=== PATIENT | male | born 1955 | race Caucasian/White ===

== ENCOUNTER → 2018-11-14 | Day surgery (SDC) | payer BC ==
[~2018-11-14] MED LIST: BENICAR20 MG PO; FENTANYL CITRATE/PF 100MCG/2 ML INJ ONE; HYOSCYAMINE 0.125 MG TAB ONE; MIDAZOLAM HCL 2 MG/2 ML VIAL ONE; PRILOSEC2.5 MG PO; PROPOFOL IV EMULSION 10 MG/ML 50 ML VIAL ONE; TUMERIC PO
--- OUTSIDE RECORDS SUMMARY | 2018-11-14 06:49 | XMS REPORT ---
Author Author Dieter White Organization [employer] Address Unknown Phone Unavailable Care Team Providers Care Rn Residential Name Role Phone Dieter White CP Unavailable Allergies, Adverse Reactions, Alerts Substance Reaction Event Type N.K.D.A. Info Not Available Non Drug Allergy Problems Problem Type Condition Code Onset Dates Condition Status Assessment Hyperkalemia E87.5 Active Assessment Essential hypertension I10 Active Assessment Encounter to discuss test results Z71.2 Active Assessment Pure hypercholesterolemia E78.00 Active Problem Seasonal allergic rhinitis, unspecified trigger J30.2 Active Problem Pain in joints M25.50 Active Problem Pure hypercholesterolemia E78.00 Active Problem Body mass index (BMI) of 28.0-28.9 in adult Z68.28 Active Problem Essential hypertension I10 Active Problem Acute hemorrhoid K64.9 Active Medications Medication Code System Code Instructions Start Date End Date Status Dosage Advil [facility] 52893411241 200 MG Orally prn Active 1 tablet with food or milk as needed Benicar [facility] 15642689327 20 mg Orally Once a day October 01, 2018 Active 1 tablet Vitamins/Minerals [facility] 25461863755 - Orally Active as directed Vital Signs Date/Time: October 07, 2018 BMI 29.56 Index Weight 212 lbs Height 71 in Cardiac Monitoring Heart Rate 72 /min Blood Pressure Diastolic 80 mm Hg Blood Pressure Systolic 120 mm Hg Results No Known Results Summary Purpose [employer] Submission
--- OUTSIDE RECORDS SUMMARY | 2018-11-14 06:49 | XMS REPORT ---
Author Author Dieter White Organization [employer] Address Unknown Phone Unavailable Care Team Providers Care Oracle Analyst Name Role Phone Dieter White CP Unavailable Allergies, Adverse Reactions, Alerts Substance Reaction Event Type N.K.D.A. Info Not Available Non Drug Allergy Problems Problem Type Condition Code Onset Dates Condition Status Assessment Pain in joints M25.50 Active Assessment Colon cancer screening Z12.11 Active Assessment Seasonal allergic rhinitis, unspecified trigger J30.2 Active Assessment Essential hypertension I10 Active Assessment Body mass index (BMI) of 28.0-28.9 in adult Z68.28 Active Assessment Acute hemorrhoid K64.9 Active Problem Acute hemorrhoid K64.9 Active Problem Body mass index (BMI) of 28.0-28.9 in adult Z68.28 Active Problem Essential hypertension I10 Active Assessment Physical exam Z00.00 Active Problem Seasonal allergic rhinitis, unspecified trigger J30.2 Active Problem Pain in joints M25.50 Active Medications Medication Code System Code Instructions Start Date End Date Status Dosage Benicar [facility] 66339817706 20 mg Orally Once a day October 01, 2018 Active 1 tablet Advil [facility] [address]-85 200 MG Orally prn Active 1 tablet with food or milk as needed Vitamins/Minerals [facility] 17089717234 - Orally Active as directed Vital Signs Date/Time: October 01, 2018 BMI 29.70 Index Weight 213 lbs Height 71 in Cardiac Monitoring Heart Rate 78 /min Blood Pressure Diastolic 90 mm Hg Blood Pressure Systolic 158 mm Hg Results Name Result Date Reference Range Unit Abnormality Flag Chest 2 views- Xray Summary Purpose [employer] Submission
--- OUTSIDE RECORDS SUMMARY | 2018-11-14 06:49 | XMS REPORT ---
Author Author Dieter White Organization [employer] Address Unknown Phone Unavailable Care Team Providers Care Data Security Administrator Name Role Phone Dieter White CP Unavailable Allergies No Known Allergies Problems Problem Type Condition Code Onset Dates Condition Status Assessment Essential hypertension I10 Active Problem Seasonal allergic rhinitis, unspecified trigger J30.2 Active Problem Pain in joints M25.50 Active Problem Pure hypercholesterolemia E78.00 Active Problem Body mass index (BMI) of 28.0-28.9 in adult Z68.28 Active Problem Essential hypertension I10 Active Problem Acute hemorrhoid K64.9 Active Medications Medication Code System Code Instructions Start Date End Date Status Dosage Benicar [facility] [id number] 20 mg Orally Once a day October 01, 2018 Active 1 tablet Vitamins/Minerals [facility] 86796873303 - Orally Active as directed Advil [facility] 69926116551 200 MG Orally prn Active 1 tablet with food or milk as needed Results No Known Results Summary Purpose [employer] Submission
--- OUTSIDE RECORDS SUMMARY | 2018-11-14 06:49 | XMS REPORT | CCD ---
Author Author Auto Generated Organization [facility] Address Unknown Phone Unavailable Care Team Providers Care Coordinator Integrated Marketing Name Role Phone Rita Mohan RP Allergies, Adverse Reactions, Alerts Substance Reaction Status NKDA Active Problem List Condition Effective Dates Status Hemorrhoids Active Hypertension Active Medications Medication Instructions Start Date End Date Status Sodium Chloride 0.9% 1,000 mL, Rate: 25 ml/hr, Infuse 06/10/2012 06/10/2012 Discontinued IV 1000 mL over: 40 hr, Route: IV, Dosing Weight 95.455 kg, Total Volume: 1,000, Start date: 06/10/12 9:59:00, Duration: 30 day, Stop date: 07/10/12 9:58:00 Vital Signs Most recent to oldest [Reference Range]: 1 2 3 Height 185.42 cm (06/10/2012 09:59:00) Systolic Blood Pressure [90-140 mmHg] 130 mmHg (06/10/2012 11:45:00) 124 mmHg (06/10/2012 11:30:00) 113 mmHg (06/10/2012 11:20:00) Diastolic Blood Pressure [60-90 mmHg] 64 mmHg (06/10/2012 11:45:00) 60 mmHg (06/10/2012 11:30:00) 59 mmHg *LOW* (06/10/2012 11:20:00) Respiratory Rate [14-20 BRMIN] 18 BRMIN (06/10/2012 11:45:00) 16 BRMIN (06/10/2012 11:30:00) 15 BRMIN (06/10/2012 11:20:00) Weight 97.727 kg (06/10/2012 09:59:00)
--- OUTSIDE RECORDS SUMMARY | 2018-11-14 06:49 | XMS REPORT | Summary of Care ---
Author Author [facility] Organization [facility] Address Unknown Phone Unavailable Encounter [facility](FIN) [id number] Date(s): 01/25/15 - 01/25/15 [facility] [address] [place] [address]- Discharge Disposition: Home Attending Physician: Rita Mohan MD Referring Physician: Rita Mohan MD Vital Signs No data available for this section Problem List Condition Effective Dates Status Health Status Informant Benign hypertension1 07/17/10 Active Bleeding internal 06/05/12 Active hemorrhoids2 Contact dermatitis 06/11/12 Resolved due to poison ivy3 Disorder of oral 06/12/10 Active soft tissues4 Fatigue5 05/20/12 Active Gastroenteritis6 03/15/09 Resolved Hematochezia7 06/05/12 Resolved Hyperlipidemia8 05/20/12 Active Left lower quadrant 06/05/12 Active pain9 Pain in thumb10 05/17/14 Resolved Shoulder joint 09/03/12 Resolved pain11 [id number] 09/08/12 Active 1Data migrated from [employer] on 09/07/14. 2Data migrated from [employer] on 09/07/14. 3Data migrated from [employer] on 10/22/14. 4Data migrated from [employer] on 09/07/14. 5Data migrated from [employer] on 09/07/14. 6Data migrated from [employer] on 10/22/14. 7Data migrated from [employer] on 09/07/14. 8Data migrated from [employer] on 09/07/14. 9Data migrated from [employer] on 09/07/14. 10Data migrated from [employer] on 10/13/14. 11Data migrated from [employer] on 09/07/14. 12Data migrated from [employer] on 09/07/14. Allergies, Adverse Reactions, Alerts Substance Reaction Severity Status NKDA Active Medications No data available for this section Results CHEM PANEL Most recent to 1 oldest [Reference Range]: eGFR 74 mL/min/1.73m2 1 *NA* (01/25/15 11:06 AM) POC Creatinine 1.1 mg/dL [0.5-1.4 mg/dL] (01/25/15 11:06 AM) 1Result Comment: The eGFR is calculated using the CKD-EPI formula. In most young, healthy individuals the eGFR will be >90 mL/min/1.73m2. The eGFR declines with age. An eGFR of 60-89 may be normal in some populations, particularly the elderly, for whom the CKD-EPI formula has not been extensively validated. Use of the eGFR is not recommended in the following populations: Individuals with unstable creatinine concentrations, including patients and those with serious co-morbid conditions. Patients with extremes in muscle mass or diet. The data above are obtained from the National Kidney Disease Education Program ( NKDEP) which additionally recommends that when the eGFR is used in patients with extremes of body mass index for purposes of drug dosing, the eGFR should be mul tiplied by the estimated BMI. Immunizations No data available for this section Procedures Procedure Date Related Diagnosis Body Site Operation1 06/25/12 Colonoscopy Open reduction and fixation of fracture Repair of rotator cuff of shoulder 1Transanal hemorrhoidal dearterialization Social History Social History Type Response Alcohol Current1 Smoking Status Former smoker; Stopped at age: 4; Exposure to Tobacco Smoke None; Other Tobacco Frequency chewing tobacco; Cigarette Smoking Last 365 Days No; Reg Smoking Cessation Counseling No 1social drinking Assessment and Plan No data available for this section
--- OUTSIDE RECORDS SUMMARY | 2018-11-14 06:49 | XMS REPORT | Continuity of Care Document ---
Author Author [employer] Address Unknown Phone Unavailable Care Team Providers Care [employer] Faculty Member Name Role Phone [employer] Information Link[employer] Unavailable Unavailable Problems Problem Status Onset Date Classification Date Reported Comments Source LLQ ABD PAIN; DIVERTICULITIS Active 01/21/2015 [facility] Pain in thumb10 Resolved 05/17/2014 Problem 06/26/2018 Data migrated from [employer] on 10/13/14. [facility] [id number] Active 09/08/2012 Problem 06/26/2018 Data migrated from [employer] on 09/07/14. [facility] Shoulder joint pain11 Resolved 09/03/2012 Problem 06/26/2018 Data migrated from [employer] on 09/07/14. [facility] Contact dermatitis due to poison ivy3 Resolved 06/11/2012 Problem 06/26/2018 Data migrated from [employer] on 10/22/14. [facility] Bleeding internal hemorrhoids2 Active 06/05/2012 Problem 06/26/2018 Data migrated from [employer] on 09/07/14. [facility] Hematochezia7 Resolved 06/05/2012 Problem 06/26/2018 Data migrated from [employer] on 09/07/14. [facility] Left lower quadrant pain9 Active 06/05/2012 Problem 06/26/2018 Data migrated from [employer] on 09/07/14. [facility] UNK Active 06/05/2012 [facility] V76.51/V16.0/V18.5 Active 06/05/2012 [facility] ICD 569.3 455.2/CPT 38847 [id number] Active 06/05/2012 [facility] Fatigue5 Active 05/20/2012 Problem 06/26/2018 Data migrated from [employer] on 09/07/14. [facility] Hyperlipidemia8 Active 05/20/2012 Problem 06/26/2018 Data migrated from [employer] on 09/07/14. [facility]1 Active 07/17/2010 Problem 06/26/2018 Data migrated from [employer] on 09/07/14. [facility] Disorder of oral soft tissues4 Active 06/12/2010 Problem 06/26/2018 Data migrated from [employer] on 09/07/14. [facility] Gastroenteritis6 Resolved 03/15/2009 Problem 06/26/2018 Data migrated from [employer] on 10/22/14. [facility] Hemorrhoids Active Problem 06/27/2012 [facility] Hypertension Active Problem 06/27/2012 [facility] Essential hypertension Active Diagnosis 10/17/2018 [facility] Seasonal allergic rhinitis, unspecified trigger Active Problem 10/17/2018 [facility] Pain in joints Active Problem 10/17/2018 [facility] Pure hypercholesterolemia Active Diagnosis 10/17/2018 [facility] Body mass index of 28.0-28.9 in adult Active Problem 10/17/2018 [facility] Acute hemorrhoid Active Problem 10/17/2018 [facility] Hyperkalemia Active Diagnosis 10/17/2018 [facility] Encounter to discuss test results Active Diagnosis 10/17/2018 [facility] Physical exam Active Diagnosis 10/03/2018 [facility] Medications Medication Details Route Status Patient Instructions Ordering Provider Order Date Source Benicar 1 tablet Orally Active 20 mg Orally Once a day Ghebranious 10/01/2018 [facility] cefdinir 300 MG Oral Capsule 300 mg=1 cap, PO, BID, X 10 day, # 20 cap, 0 Refill(s), Pharmacy: [facility] [id number] Active 06/23/2018 [facility] montelukast 10 MG Oral Tablet [Singulair] 10 mg=1 tab, PO, Bedtime, # 30 tab, 0 Refill(s), Pharmacy: [facility] [id number] Active 06/23/2018 [facility] Fluticasone propionate 0.05 MG/ACTUAT Metered Dose Nasal [place] [Flonase] 2 spray, NASAL, BID, # 16 gm, 0 Refill(s), Pharmacy: [facility] [id number] Active 06/23/2018 [facility] cetirizine hydrochloride 10 MG Oral Tablet [Zyrtec] 10 mg=1 tab, PO, Daily, PRN for allergy symptoms, # 30 tab, 1 Refill(s) Active 06/23/2018 [facility] Lactated Ringers Injection IV 1000 mL 1,000 mL, Rate: 50 ml/hr, Infuse over: 20 hr, Route: IV, Dosing Weight 97.727 kg, Total Volume: 1,000, Start date: 06/25/12 12:09:00, Duration: 30 day, Stop date: 07/25/12 12:08:00 IV No Longer Active Leon 06/25/2012 [facility] acetaminophen-hydrocodone 325 mg-5 mg oral tablet 2 tab, Route: PO, Dosing Weight 97.727, kg, Q4H, PRN Pain Score 4-6, Start date: 06/25/12 12:09:00, Duration: 30 day, Stop date: 07/25/12 12:08:00 PO No Longer Active Catia 06/25/2012 [facility] fentanyl 25 microgram, Route: IVP, Q5Min, Dosing Weight 97.727, kg, PRN Pain Score 4-6, Start date: 06/25/12 12:09:00, Duration: 4 doses or times, Stop date: Limited # of times IVP No Longer Active Catia 06/25/2012 [facility] hydromorphone 0.5 mg, Route: IVP, Q5Min, Dosing Weight 97.727, kg, PRN Pain Score 4-6, Start date: 06/25/12 12:09:00, Duration: 5 doses or times, Stop date: Limited # of times IVP No Longer Active Catia 06/25/2012 [facility] ondansetron 4 mg, Route: IVP, ONCE, Dosing Weight 97.727, kg, PRN Nausea & Vomiting, Start date: 06/25/12 12:09:00 IVP No Longer Active Catia 06/25/2012 [facility] naloxone 0.04 mg, Route: IVP, Q2MIN, Dosing Weight 97.727, kg, PRN Narcotic Reversal, Start date: 06/25/12 12:09:00, Duration: 8 doses or times, Stop date: Limited # of times IVP No Longer Active Leon 06/25/2012 [facility] flumazenil 0.2 mg, Route: IVP, PRN, Dosing Weight 97.727, kg, PRN Benzodiazepine Reversal, Initial dose, Start date: 06/25/12 12:09:00, Duration: 30 day, Stop date: 07/25/12 12:08:00 IVP No Longer Active Leon 06/25/2012 [facility] Lactated Ringers Injection IV 1000 mL 1,000 mL, Rate: 25 ml/hr, Infuse over: 40 hr, Route: IV, Dosing Weight 97.727 kg, Total Volume: 1,000, Start date: 06/25/12 10:35:00, Duration: 30 day, Stop date: 07/25/12 10:34:00 IV No Longer Active Leon 06/25/2012 [facility] [place] 5/325 oral tablet 1 tab, PO, Q4-6H, PRN, 30 tab, as needed for pain, Substitution Allowed, Maintenance [facility] Toradol 10 mg oral tablet 10 mg, PO, Q6H, PRN, 20 btl, Pain, Substitution Allowed, TAB PO Active [facility] 06/25/2012 [facility] morphine Sulfate 4 mg, Route: IVP, Q2H, Dosing Weight 97.727, kg, PRN Pain Score 4-6, Start date: 06/25/12 9:57:00, Duration: 30 day, Stop date: 07/25/12 9:56:00 IVP No Longer Active Leon 06/25/2012 [facility] acetaminophen-hydrocodone 325 mg-5 mg oral tablet 2 tab, Route: PO, Dosing Weight 97.727, kg, Q4H, PRN Pain Score 4-6, Start date: 06/25/12 9:57:00, Duration: 30 day, Stop date: 07/25/12 9:56:00 PO No Longer Active Leon 06/25/2012 [facility] Sodium Chloride 0.9% IV 1000 mL 1,000 mL, Rate: 25 ml/hr, Infuse over: 40 hr, Route: IV, Dosing Weight 95.455 kg, Total Volume: 1,000, Start date: 06/10/12 9:59:00, Duration: 30 day, Stop date: 04/04/13 9:58:00 IV No Longer Active Voloyiannis 06/10/2012 [facility] omega-3 polyunsaturated fatty acids 1000 mg oral capsule 1,000 mg, 1 cap, PO, Daily, Substitution Allowed PO Active 06/09/2012 [facility] Vitamin D3 1000 intl units oral capsule 1,000 IntlUnit, 1 cap, PO, Daily, 100 cap, Substitution Allowed, CAP PO Active 06/09/2012 [facility] multivitamin with minerals Multiple Vitamins with Zinc oral capsule 1 cap, PO, Daily, 60 cap, Substitution Allowed, Maintenance, CAP PO Active 06/09/2012 [facility] Benicar 20 mg oral tablet 20 mg, 1 tab, PO, Daily, 30 tab, Substitution Allowed, TAB PO Active 06/09/2012 [facility] Vitamins/Minerals as directed Orally Active - Orally Ghebranious [facility] Advil 1 tablet with food or milk as needed Orally Active 200 MG Orally prn Ghebranious [facility] Advil 1 tablet with food or milk as needed Orally Active 200 MG Orally prn Ghebranious [facility] Allergies, Adverse Reactions, Alerts Substance Category Reaction Severity Reaction type Status Date Reported Comments Source N.K.D.A. Adverse Reaction Info Not Available Adverse Reaction Active 10/07/2018 [facility] Immunizations Immunization Date Given Site Status Last Updated Comments Source influenza virus vaccine, inactivated 01/02/2016 Right Deltoid completed [facility] Results Order Name Results Value Reference Range Date Interpretation Comments Source CHEM PANEL eGFR 74 01/25/2015 Result Comment: The eGFR is calculated using the [...] from the National Kidney Disease Education Program (NKDEP) which additionally recommends that when the eGFR is used in patients with extremes of body mass index for purposes of drug dosing, the eGFR should be multiplied by the estimated BMI. [facility] CHEM PANEL POC Creatinine 1.1 0.5 - 1.4 01/25/2015 [facility] CHEMISTRY eGFR 84 06/09/2012 NA <sup>1</sup>Result Comment: The eGFR is calculated using the CKD-EPI formula. In most young, healthy individuals the eGFR will be >90 mL/min/1.73m2. The eGFR declines with age. An eGFR of 60-89 may be normal in some populations, particularly the elderly, for whom the CKD-EPI formula has not been extensively validated. Use of the eGFR is not recommended in the following populations:& lt;br/>
Individuals with unstable creatinine concentrations, including patients and those with serious co-morbid conditions.

Patients with extremes in muscle mass or diet.

The data above are obtained from the National Kidney Disease Education Program (NKDEP) which additionally recommends that when the eGFR is used in patients with extremes of body mass index for purposes of drug dosing, the eGFR should be multiplied by the estimated BMI. [facility] CHEMISTRY CO2 30 24 - 32 06/09/2012 Normal [facility] CHEMISTRY Calcium Lvl 9.2 8.5 - 10.5 06/09/2012 Normal [facility] CHEMISTRY Glucose Lvl 109 70 - 99 06/09/2012 [facility] <sup>2</sup>Interpretive Data: Adult reference range values reflect the clinical guidelines
of the [place] [employer]. [facility] CHEMISTRY BUN 16 7 - 22 06/09/2012 Normal [facility] CHEMISTRY Chloride Lvl 105 95 - 109 06/09/2012 Normal [facility] CHEMISTRY Sodium Lvl 142 135 - 145 06/09/2012 Normal [facility] CHEMISTRY Potassium Lvl 4.3 3.5 - 5.1 06/09/2012 Normal [facility] CHEMISTRY Creatinine Lvl 1.0 0.5 - 1.4 06/09/2012 Normal [facility] CHEMISTRY AGAP 11.3 10.0 - 20.0 06/09/2012 Normal [facility] HEMATOLOGY Hct 41.4 42.0 - 54.0 06/09/2012 LOW [facility] HEMATOLOGY Hgb 12.9 14.0 - 18.0 06/09/2012 LOW [facility] Pathology Reports No Data Provided for This Section Diagnostic Reports Report Value Date Source Ankle 3 views DX Clinical Indication: Status post fall with left ankle injury. Comparison: None FINDINGS: The AP, oblique, and lateral views of the left ankle show a spiral fracture injury at the distal left fibula extending from the level of the ankle mortise slightly superiorly. Minimal displacement of the fracture fragments present. The talar dome appears intact. There is mild to moderate soft tissue swelling over the lateral malleolus. No large ankle effusion. No radiopaque foreign body. If there is further concern, recommend follow-up radiographs or MRI for complete assessment. IMPRESSION: 1. Minimally displaced spiral fracture injury at the distal left fibula extending from the level of the ankle mortise slightly superiorly. There is mild to moderate overlying soft tissue swelling. SL: [id number] 05/12/2016 [facility] Abdomen/Pelvis w IV contrast CT EXAMINATION: CT of the abdomen and pelvis with contrast HISTORY: R10.32 Left lower quadrant pain; K57.80 Diverticulitis of intestine, part unspecified, with perforation and abscess without bleeding COMPARISON: None. DLP: 1645.16 TECHNIQUE: Multiple transaxial images through the abdomen and pelvis were acquired following administration of intravenous contrast material. Oral contrast was administered. Multiplanar reformatted images were performed. FINDINGS: The lung bases are clear bilaterally. Mild hepatomegaly is noted. 1.3 cm hypodense cyst in the right hepatic lobe is seen. No intrahepatic or extra hepatic biliary duct dilatation is seen. Gallbladder, pancreas, adrenal glands, and kidneys are unremarkable. Bladder and prostate are unremarkable. Small fat-containing left inguinal hernia is seen. Sigmoid diverticula are seen without inflammatory change to suggest acute diverticulitis. Appendix is unremarkable. No intraperitoneal free air, free fluid, or pathologic adenopathy is seen. Mild arterial desiccation is are seen. Superficial soft tissues are unremarkable. Degenerative change of the lower lumbar spine is seen. Bilateral L5 pars interarticularis defects are seen with grade 1/2 anterolisthesis of L5 over S1. IMPRESSION: 1. No acute intra-abdominal/pelvic abnormality. 2. Sigmoid diverticulosis without acute diverticulitis. 3. Mild hepatomegaly. 4. Small fat-containing left inguinal hernia. SL: 16 01/25/2015 [facility] Consultation Notes No Data Provided for This Section Discharge Summaries No Data Provided for This Section History and Physicals No Data Provided for This Section Vital Signs Vital Sign Value Date Comments Source Weight 212 10/07/2018 [facility] Height 71 10/07/2018 [facility] Heart Rate 72 10/07/2018 [facility] Diastolic (mm Hg) 80 10/07/2018 [facility] Systolic (mm Hg) 120 10/07/2018 [facility] Weight 213 10/01/2018 [facility] Height 71 10/01/2018 [facility] Heart Rate 78 10/01/2018 [facility] Diastolic (mm Hg) 90 10/01/2018 [facility] Systolic (mm Hg) 158 10/01/2018 [facility] BMI Calculated 27.95 06/23/2018 [facility] Weight 96.08 06/23/2018 [facility] Height 185.42 cm 06/23/2018 [facility] Systolic (mm Hg) 176 06/23/2018 [facility] Diastolic (mm Hg) 90 06/23/2018 [facility] Respitory Rate 18 06/23/2018 [facility] Heart Rate 76 06/23/2018 [facility] Temperature Oral (F) 96.8 F 06/23/2018 [facility] Diastolic (mm Hg) 70 06/25/2012 [facility] Systolic (mm Hg) 107 06/25/2012 [facility] Systolic (mm Hg) 113 06/25/2012 [facility] Diastolic (mm Hg) 80 06/25/2012 [facility] Diastolic (mm Hg) 84 06/25/2012 [facility] Systolic (mm Hg) 110 06/25/2012 [facility] Respitory Rate 12 06/25/2012 [facility] Respitory Rate 11 06/25/2012 [facility] Respitory Rate 15 06/25/2012 [facility] Heart Rate 63 06/25/2012 [facility] Rate 18 06/10/2012 [facility] Diastolic (mm Hg) 64 06/10/2012 [facility] Systolic (mm Hg) 130 06/10/2012 [facility] Rate 16 06/10/2012 [facility] Systolic (mm Hg) 124 06/10/2012 [facility] Diastolic (mm Hg) 60 06/10/2012 [facility] Rate 15 06/10/2012 [facility] Systolic (mm Hg) 113 06/10/2012 [facility] Diastolic (mm Hg) 59 06/10/2012 [facility] Weight 97.727 06/10/2012 [facility] Height 185.42 cm 06/10/2012 [facility] Temperature Oral (F) 98.5 F 06/09/2012 [facility] Heart Rate 68 06/09/2012 [facility] Height 185.42 cm 06/09/2012 [facility] Weight 95.455 06/09/2012 [facility] Encounters Location Location Details Encounter Type Encounter Number Reason For Visit Attending Provider ADM Date DC Date Status Source [facility] FREDDY [id number] THEODOROS VOLOYIANNIS 06/10/2012 06/10/2012 Discharged [facility] DS [id number] ICD 569.3 455.2/CPT 14036 [id number] THEODOROS VOLOYIANNIS 06/25/2012 06/25/2012 Active [facility] Outpatient [id number] FIRAS QUDDOS 12/23/2014 [facility] Outpatient [id number] [facility] 01/20/2015 [facility] Outpatient [id number] Theodoros Voloyiannis 01/25/2015 01/26/2015 [facility] Outpatient [id number] [place] [facility] 02/02/2015 Active [facility] Outpatient [id number] FIRAS QUDDOS 11/29/2015 Active [facility] Outpatient [id number] FIRAS QUDDOS 01/02/2016 [facility] Outpatient [id number] HENRY RODRIGUZE 05/12/2016 [facility] Outpatient [id number] HENRY RODRIGUEZ 09/09/2016 [facility] Outpatient [id number] FIRAS QUDDOS 09/10/2016 Active [facility] Outpatient [id number] EDDIE HOLDER 06/23/2018 [facility] Outpatient [id number] Eddie Holder 06/23/2018 06/24/2018 [facility] Procedures Procedure Code Date Perfomer Comments Source Operation<sup>1</sup> [id number] 06/25/2012 Transanal hemorrhoidal dearterialization [facility] Operation<sup>1</sup> [id number] 06/25/2012 Transanal hemorrhoidal dearterialization [facility] Colonoscopy [id number] [facility] Open reduction and fixation of fracture [id number] [facility] Repair of rotator cuff of shoulder [id number] [facility] Colonoscopy [id number] [facility] Open reduction and fixation of fracture [id number] [facility] Repair of rotator cuff of shoulder [id number] [facility] Colonoscopy [id number] [facility] Open reduction and fixation of fracture [id number] [facility] Repair of rotator cuff of shoulder [id number] [facility] Assessment and Plan No Data Provided for This Section Plan of Care No Data Provided for This Section Social History Social History Date Source Social History TypeResponse Alcohol Current1 Smoking Status Former smoker; Type: Chewing tobacco; Exposure to Tobacco Smoke None; Cigarette Smoking Last 365 Days No; Reg Smoking Cessation Counseling No; Stopped at age: 58; Other Tobacco Frequency chewing tobacco; entered on: 06/23/18 1social drinking 09/09/2016 [facility] Social History TypeResponse Alcohol Current1 Smoking Status Former smoker; Stopped at age: 4; Exposure to Tobacco Smoke None; Other Tobacco Frequency chewing tobacco; Cigarette Smoking Last 365 Days No; Reg Smoking Cessation Counseling No 1social drinking 01/20/2015 [facility] Family History No Data Provided for This Section Advance Directives No Data Provided for This Section Functional Status No Data Provided for This Section
--- OUTSIDE RECORDS SUMMARY | 2018-11-14 06:49 | XMS REPORT | CCD ---
Author Author Auto Generated Organization [facility] Address Unknown Phone Unavailable Care Team Providers Care Gas And Oil Checker Name Role Phone Rita Mohan RP Allergies, Adverse Reactions, Alerts Substance Reaction Status NKDA Active Problem List Condition Effective Dates Status Hemorrhoids Active Hypertension Active Medications Medication Instructions Start Date End Date Status omega-3 1,000 mg, 1 cap, PO, Daily, 06/09/2012 Ordered polyunsaturated Substitution Allowed fatty acids 1000 mg oral capsule [place] 5/325 oral 1 tab, PO, Q4-6H, PRN, 30 tab, as 06/25/2012 Ordered tablet needed for pain, Substitution Allowed, Maintenance Toradol 10 mg oral 10 mg, PO, Q6H, PRN, 20 btl, Pain, 06/25/2012 Ordered tablet Substitution Allowed, TAB Vitamin D3 1000 intl 1,000 IntlUnit, 1 cap, PO, Daily, 06/09/2012 Ordered units oral capsule 100 cap, Substitution Allowed, CAP multivitamin with 1 cap, PO, Daily, 60 cap, 06/09/2012 Ordered minerals Multiple Substitution Allowed, Maintenance, Vitamins with Zinc CAP oral capsule Benicar 20 mg oral 20 mg, 1 tab, PO, Daily, 30 tab, 06/09/2012 Ordered tablet Substitution Allowed, TAB morphine Sulfate 4 mg, Route: IVP, Q2H, Dosing 06/25/2012 06/25/2012 Discontinued Weight 97.727, kg, PRN Pain Score 4-6, Start date: 06/25/12 9:57:00, Duration: 30 day, Stop date: 07/25/12 9:56:00 acetaminophen-hydroc 2 tab, Route: PO, Dosing Weight 06/25/2012 06/25/2012 Discontinued odone 325 mg-5 mg 97.727, kg, Q4H, PRN Pain Score oral tablet 4-6, Start date: 06/25/12 9:57:00, Duration: 30 day, Stop date: 07/25/12 9:56:00 acetaminophen-hydroc 1 tab, Route: PO, Dosing Weight 06/25/2012 06/25/2012 Discontinued odone 325 mg-5 mg 97.727, kg, Q4H, PRN Pain Score oral tablet 1-3, Start date: 06/25/12 9:57:00, Duration: 30 day, Stop date: 07/25/12 9:56:00 Lactated Ringers 1,000 mL, Rate: 50 ml/hr, Infuse 06/25/2012 06/25/2012 Discontinued Injection IV 1000 mL over: 20 hr, Route: IV, Dosing Weight 97.727 kg, Total Volume: 1,000, Start date: 06/25/12 12:09:00, Duration: 30 day, Stop date: 07/25/12 12:08:00 acetaminophen-hydroc 2 tab, Route: PO, Dosing Weight 06/25/2012 06/25/2012 Discontinued odone 325 mg-5 mg 97.727, kg, Q4H, PRN Pain Score oral tablet 4-6, Start date: 06/25/12 12:09:00, Duration: 30 day, Stop date: 07/25/12 12:08:00 acetaminophen-hydroc 1 tab, Route: PO, Dosing Weight 06/25/2012 06/25/2012 Discontinued odone 325 mg-5 mg 97.727, kg, Q4H, PRN Pain Score oral tablet 1-3, Start date: 06/25/12 12:09:00, Duration: 30 day, Stop date: 07/25/12 12:08:00 fentanyl 25 microgram, Route: IVP, Q5Min, 06/25/2012 06/25/2012 Completed Dosing Weight 97.727, kg, PRN Pain Score 4-6, Start date: 06/25/12 12:09:00, Duration: 4 doses or times, Stop date: Limited # of times hydromorphone 0.5 mg, Route: IVP, Q5Min, Dosing 06/25/2012 06/25/2012 Discontinued Weight 97.727, kg, PRN Pain Score 4-6, Start date: 06/25/12 12:09:00, Duration: 5 doses or times, Stop date: Limited # of times ondansetron 4 mg, Route: IVP, ONCE, Dosing 06/25/2012 06/25/2012 Discontinued Weight 97.727, kg, PRN Nausea & Vomiting, Start date: 06/25/12 12:09:00 naloxone 0.04 mg, Route: IVP, Q2MIN, Dosing 06/25/2012 06/25/2012 Discontinued Weight 97.727, kg, PRN Narcotic Reversal, Start date: 06/25/12 12:09:00, Duration: 8 doses or times, Stop date: Limited # of times flumazenil 0.2 mg, Route: IVP, PRN, Dosing 06/25/2012 06/25/2012 Discontinued Weight 97.727, kg, PRN Benzodiazepine Reversal, Initial dose, Start date: 06/25/12 12:09:00, Duration: 30 day, Stop date: 07/25/12 12:08:00 Lactated Ringers 1,000 mL, Rate: 25 ml/hr, Infuse 06/25/2012 06/25/2012 Discontinued Injection IV 1000 mL over: 40 hr, Route: IV, Dosing Weight 97.727 kg, Total Volume: 1,000, Start date: 06/25/12 10:35:00, Duration: 30 day, Stop date: 07/25/12 10:34:00 Vital Signs Most recent to oldest [Reference Range]: 1 2 3 Height 185.42 cm (06/09/2012 07:27:00) Temperature Oral [96.4-99.1 DegF] 98.5 DegF (06/09/2012 08:13:00) Systolic Blood Pressure [90-140 mmHg] 107 mmHg (06/25/2012 14:00:00) 113 mmHg (06/25/2012 13:45:00) 110 mmHg (06/25/2012 13:28:00) Diastolic Blood Pressure [60-90 mmHg] 70 mmHg (06/25/2012 14:00:00) 80 mmHg (06/25/2012 13:45:00) 84 mmHg (06/25/2012 13:28:00) Respiratory Rate [14-20 BRMIN] 12 BRMIN *LOW* (06/25/2012 12:45:00) 11 BRMIN *LOW* (06/25/2012 12:30:00) 15 BRMIN (06/25/2012 12:15:00) Peripheral Pulse Rate [60-100 bpm] 63 bpm (06/25/2012 10:24:00) 68 bpm (06/09/2012 08:13:00) Weight 95.455 kg (06/09/2012 07:27:00) Results CHEMISTRY Most recent to oldest [Reference Range]: 1 Sodium Lvl [135-145 mEq/L] 142 mEq/L (06/09/2012 08:05:00) Potassium Lvl [3.5-5.1 mEq/L] 4.3 mEq/L (06/09/2012 08:05:00) Chloride Lvl [95-109 mEq/L] 105 mEq/L (06/09/2012 08:05:00) CO2 [24-32 mEq/L] 30 mEq/L (06/09/2012 08:05:00) AGAP [10.0-20.0 mEq/L] 11.3 mEq/L (06/09/2012 08:05:00) Creatinine Lvl [0.5-1.4 mg/dL] 1.0 mg/dL (06/09/2012 08:05:00) eGFR 84 mL/min/1.73m2 1 *NA* (06/09/2012 08:05:00) BUN [7-22 mg/dL] 16 mg/dL (06/09/2012 08:05:00) Glucose Lvl [70-99 mg/dL] 109 mg/dL 2 *HI* (06/09/2012 08:05:00) Calcium Lvl [8.5-10.5 mg/dL] 9.2 mg/dL (06/09/2012 08:05:00) 1Result Comment: The eGFR is calculated using [...] be mul tiplied by the estimated BMI. 2Interpretive Data: Adult reference range values reflect the clinical guidelines of the [place] [employer]. HEMATOLOGY Most recent to oldest [Reference Range]: 1 Hgb [14.0-18.0 g/dL] 12.9 g/dL *LOW* (06/09/2012 08:05:00) Hct [42.0-54.0 %] 41.4 % *LOW* (06/09/2012 08:05:00) Procedures Procedures Date Related Diagnosis Colonoscopy Open reduction and fixation of fracture Repair of rotator cuff of shoulder
--- OUTSIDE RECORDS SUMMARY | 2018-11-14 06:49 | XMS REPORT | Summary of Care ---
Author Author [facility] Organization [facility] Address Unknown Phone Unavailable Encounter [facility] Selin(FIN) [id number] Date(s): 06/23/18 - 06/23/18 [facility] [address] [place] [address]- [phone] Discharge Disposition: Home or Self Care Attending Physician: Ame Holder MD Vital Signs Most recent to 1 oldest [Reference Range]: Height 185.42 cm (06/23/18 2:22 PM) Temperature Oral 96.8 DegF [96.4-99.1 DegF] (06/23/18 2:22 PM) Blood Pressure 176/90 mmHg [90-140/60-90 mmHg] *HI* (06/23/18 2:22 PM) Respiratory Rate 18 BRMIN [14-20 BRMIN] (06/23/18 2:22 PM) Peripheral Pulse 76 bpm Rate [60-100 bpm] (06/23/18 2:22 PM) Weight 96.08 kg (06/23/18 2:22 PM) Body Mass Index 27.95 m2 (06/23/18 2:22 PM) Problem List Condition Effective Dates Status Health Status Informant Benign hypertension1 07/17/10 Active Bleeding internal 06/05/12 Active hemorrhoids2 Contact dermatitis 06/11/12 Resolved due to poison ivy3 Disorder of oral 06/12/10 Active soft tissues4 Fatigue5 05/20/12 Active Gastroenteritis6 03/15/09 Resolved Hematochezia7 06/05/12 Resolved Hyperlipidemia8 05/20/12 Active Left lower quadrant 06/05/12 Active pain9 Pain in thumb10 05/17/14 Resolved Shoulder joint 09/03/12 Resolved pain11 [id number] 09/08/12 Active 1Data migrated from [employer] on 6/2/15. 2Data migrated from [employer] on 09/07/14. [...] Substance Reaction Severity Status NKDA Active Medications cefdinir 300 mg oral capsule 300 mg=1 cap, PO, BID, X 10 day, # 20 cap, 0 Refill(s), Pharmacy: [id number] Start Date: 06/23/18 Stop Date: 07/03/18 Status: Ordered Flonase 0.05 mg/inh nasal spray 2 spray, NASAL, BID, # 16 gm, 0 Refill(s), Pharmacy: [id number] Start Date: 06/23/18 Status: Ordered Singulair 10 mg oral tablet 10 mg=1 tab, PO, Bedtime, # 30 tab, 0 Refill(s), Pharmacy: [id number] Start Date: 06/23/18 Status: Ordered ZyrTEC 10 mg oral tablet 10 mg=1 tab, PO, Daily, PRN for allergy symptoms, # 30 tab, 1 Refill(s) Start Date: 06/23/18 Stop Date: 07/23/18 Status: Ordered Results No data available for this section Immunizations Given and Recorded Vaccine Date Status Refusal Reason influenza virus vaccine, inactivated 01/02/16 Given Procedures Procedure Date Related Diagnosis Body Site Status Operation1 06/25/12 Completed Colonoscopy Completed Open reduction and fixation of fracture Completed Repair of rotator cuff of shoulder Completed 1Transanal hemorrhoidal dearterialization Social History Social History Type Response Alcohol Current1 Smoking Status Former smoker; Type: Chewing tobacco; Exposure to Tobacco Smoke None; Cigarette Smoking Last 365 Days No; Reg Smoking Cessation Counseling No; Stopped at age: 58; Other Tobacco Frequency chewing tobacco; entered on: 06/23/18 1social drinking Assessment and Plan No data available for this section
--- NOTE | 2018-11-14 07:45 | NUR ---
SPIRITUAL CARE - Pre-Surgery Assessment: Pt in bed. Pt reported supportive attention from family and friends. Intervention: I provided pastoral presence, hospitality, and sympathetic listening. I acquainted pt with availability of mechanical systems control engineer while hospitalized. Outcome: Pt expressed appreciation for visit. No need for follow up indicated at this time. NAL[facility] Spiritual Care Department O: [phone] Pager: [phone] ([phone] number calling from)
[2018-11-14 11:00] VITALS: BP 118/73
--- NOTE | 2018-11-14 15:17 | Operative Report ---
DATE OF PROCEDURE: 11/14/2018 SURGEON: Robi Freedman MD PROCEDURE: EGD with biopsies and colonoscopy with polypectomy. INDICATIONS FOR EGD: Heartburn, indigestion, bloating. INDICATIONS FOR COLONOSCOPY: Colorectal cancer screening. MEDICATIONS: The patient was done under MAC, please see anesthesiologist's note. PROCEDURE IN DETAIL: With the patient in left lateral decubitus position, flexible fiberoptic Olympus gastroscope was introduced into the esophagus under direct visualization without any difficulty. There was some patchy erythema noted in distal esophagus. The GE junction appears somewhat nodular and that was biopsied. The scope was then advanced with ease into the stomach. Mucosa overlying the antrum and the body revealed some patchy erythema and low-grade to moderate edema. Biopsies were obtained and sent to stain for H pylori. Hyperplastic-appearing polyps were noted in the body of the stomach and somewhat partially excised with the cold biopsy forceps. The pylorus was of normal contour and shape, it was intubated with ease and the scope was advanced all the way to the second portion of the duodenum. The scope was then withdrawn slowly and biopsies were obtained from the second portion and the duodenal bulb to rule out sprue. The scope was then withdrawn back into the stomach and retroflexed, mucosa overlying the fundus and cardia appeared to be within normal limits. The scope was then straightened out, it was subsequently withdrawn. The patient tolerated the procedure well. IMPRESSION: 1. Distal esophagitis, mild. 2. GE junction somewhat nodular, biopsied. 3. Gastric polyps, hyperplastic appearing, some partially were excised with cold biopsy forceps. 4. Gastritis, biopsied. Biopsies sent to stain for Helicobacter pylori. 5. Rule out sprue. PLAN: Follow up histology. Initiate Protonix 40 mg one p.o. q.a.m. a.c. PROCEDURE IN DETAIL: The patient was then turned around after adequate lubrication of the anal canal, flexible fiberoptic Olympus colonoscope was inserted into the rectum with ease and advanced all the way to the cecum. Two minute polyps were removed per the cold biopsy forceps from the cecum. The scope was then withdrawn slowly, mucosa overlying the ascending colon, transverse and descending grossly appeared to be within normal limits. Some diverticular disease was noted to involve the distal descending and the sigmoid colon. Three polyps were hot biopsied from the rectum. The scope was then retroflexed into the distal rectum and moderate-sized internal hemorrhoids were noted, none of which was actively bleeding. The scope was then straightened out, it was subsequently withdrawn. The patient tolerated the procedure well. IMPRESSION: 1. Cecal polyps x2, removed per cold biopsy forceps. 2. Diverticulosis. 3. Rectal polyps x3, hot biopsied. 4. Internal hemorrhoids, none actively bleeding. PLAN: Followup histology. Initiate high-fiber, low-fat diet. Initiate high-fiber supplement. The patient might benefit from a followup colonoscopy in 3 years. Robi Freedman MD [facility] [place] /[id number] cc: Dieter White MD
== END | disposition home or self-care (01) ==
LOC: OR 06:44
PROVIDERS: ATTEND Internal Medicine Gastroenterology
DX: K21.0 Gastro-esophageal reflux disease with esophagitis (principal); D12.0 Benign neoplasm of cecum; K62.1 Rectal polyp; K31.7 Polyp of stomach and duodenum; K29.70 Gastritis, unspecified, without bleeding; K22.8 Other specified diseases of esophagus; K57.30 Diverticulosis of large intestine without perforation or abscess without bleeding; K59.09 Other constipation; K64.8 Other hemorrhoids; L29.0 Pruritus ani; I10 Essential (primary) hypertension; Z68.26 Body mass index [BMI] 26.0-26.9, adult; Z80.0 Family history of malignant neoplasm of digestive organs
CPT/HCPCS: 43239; 45380; 45384; J2250; J2704; J3010; 45378